=== PATIENT | female | born 1980 | race Caucasian/White ===

== ENCOUNTER → 2020-10-23 | Outpatient (CLI) | payer BC ==
[~2020-10-23] MED LIST: ALBU17AE3 IH; IPRA0.2S47 IH; PRD50T PO; PREN1TAB39
--- NOTE | 2020-10-23 12:43 | Diagnostic Imaging Report ---
INDICATION: Routine screening. COMPARISON: No prior mammograms are available for comparison. This is a baseline study. TECHNIQUE: 2D and 3D bilateral screening mammography was performed with CAD. FINDINGS: Scattered fibroglandular densities are identified bilaterally. The right breast is unremarkable. There appears to be a small cluster of cysts in the outer left breast. The patient does have bilateral breast implants. The implant contours of the right implant appear to be smooth. There is some flattening of the medial margin of the left breast implant compared to the right. No definite extracapsular rupture is seen. The axillae are unremarkable. IMPRESSION: No mammographic features suspicious for malignancy are identified. ACR BI-RADS Category 2: Benign findings. Result letter will be mailed to the patient. Note: At least 10% of breast cancer is not imaged by mammography. Dictated by: Dictated on workstation # [id number]
== END ==
LOC: RAD 10:15
PROVIDERS: ATTEND Obstetrics & Gynecology
DX: Z12.31 Encounter for screening mammogram for malignant neoplasm of breast (principal)
CPT/HCPCS: 77063; 77067